=== PATIENT | female | born 1985 | race Caucasian/White ===

== ENCOUNTER 2016-08-14 07:16 | Emergency (ER) | payer OTHER ==
[~2016-08-14] VITALS: Ht 167.6 cm; Wt 70.2 kg
[2016-08-14 07:19] VITALS: Ht 167.6 cm; Wt 70.2 kg
[2016-08-14] MEDS ORDERED: KETOROLAC 30 MG INJ IV STA (08:16)
[2016-08-14] MEDS ORDERED: DIPHENHYDRAMINE 50 MG INJ IV ONE (08:30)
[2016-08-14] MEDS ORDERED: METOCLOPRAMIDE 10 MG INJ IV ONE (08:30)
[2016-08-14] MEDS ORDERED: SOD CHLORIDE 0.9% 1,000 ML IV ONE (08:30)
[2016-08-14 08:58] LABS: ADD SCAN DIFF NO
[2016-08-14 09:05] LABS: ADD UMIC YES; URINE BILIRUBIN (Dip) NEGATIVE (NEGATIVE); URINE BLOOD (Dip) 3+ (NEGATIVE); URINE COLOR LT. YELLOW (YELLOW); URINE GLUCOSE (Dip) NEGATIVE (NEGATIVE); URINE KETONES (Dip) NEGATIVE (NEGATIVE); URINE LEUKOCYTE ESTERASE (Dip) NEGATIVE (NEGATIVE); URINE NITRITE (Dip) NEGATIVE (NEGATIVE); URINE TOTAL PROTEIN (Dip) NEGATIVE (NEGATIVE); URINE UROBILINOGEN (Dip) 0.2 E.U./dL (0.1-1.0)
[2016-08-14 09:05] LABS: BASOPHILS % 0.3 % (0.0-2.0); EOSINOPHILS # 0.4 10^3/ul (0.0-0.5); EOSINOPHILS % 6.1 % (0.0-7.0); HEMATOCRIT 38.4 % (37.0-47.0); HEMOGLOBIN 12.6 g/dl (12.0-16.0); LYMPHOCYTES # 1.3 10^3/ul (0.8-2.9); LYMPHOCYTES % 20.9 % (15.0-51.0); MEAN CORPUSCULAR HEMOGLOBIN 29.2 pg (29.0-33.0); MEAN CORPUSCULAR HGB CONC 32.8 g/dl (32.0-37.0); MEAN CORPUSCULAR VOLUME 89.1 fl (82.0-101.0); MEAN PLATELET VOLUME 9.7 fl (7.4-10.4); MONOCYTE # 0.7 10^3/ul (0.3-0.9); MONOCYTES % 11.2 % (0.0-11.0); NEUTROPHIL # 3.9 10^3/ul (1.6-7.5); NEUTROPHILS % 61.2 % (39.0-77.0); PLATELET COUNT 329 10^3/UL (140-415); RED BLOOD COUNT 4.31 10^6/ul (4.20-5.40); RED CELL DISTRIBUTION WIDTH 12.8 % (11.5-14.5); WHITE BLOOD COUNT 6.4 10^3/ul (4.8-10.8)
[2016-08-14 09:14] LABS: ALBUMIN 4.1 g/dl (3.3-4.9)
[2016-08-14 09:15] LABS: POTASSIUM 4.1 mmol/L (3.5-5.1)
[2016-08-14 09:17] LABS: ALBUMIN/GLOBULIN RATIO 1.2; BILIRUBIN,INDIRECT 0.1 mg/dl (0-1.1); BILIRUBIN,TOTAL 0.1 mg/dl (0.2-1.3); CREATININE 0.95 mg/dl (0.44-1.00); TOTAL PROTEIN 7.5 g/dl (6.1-8.1)
[2016-08-14 09:18] LABS: CALCIUM 9.2 mg/dl (8.4-10.2)
[2016-08-14 09:37] LABS: SQUAMOUS EPITHELIAL CELL,UR FEW; URINE RBCS 0-2 /HPF (0)
[2016-08-14] MEDS ORDERED: NAPR-683 PO (10:00)
[2016-08-14] MEDS ORDERED: HYDR-906 PO (10:00)
[2016-08-14 10:07] VITALS: BP 117/80; PULSE 65; RESP 18; TEMP 98
--- NOTE | 2016-08-14 10:08 | ERD ---
ER Documentation Chief Complaint Date/Time DATE: 08/14/16 TIME: 10:08 Chief Complaint r side neck pain non traumatic since 0400. no neuromotor deficit HPI This is a 30-year-old female presents to the ER with right-sided neck pain that radiates into the right side of her head since 4 this morning. Patient has had these kind of headaches in the past however states this headache is worse. She has not had any head trauma. Pain is rated as 10 out of 10 and it is constant and stabbing in nature. Patient took ibuprofen and it did not help. She does admit to light sensitivity. She denies any vision changes. She denies any eye pain. Denies any fevers or chills. She denies any recent cough or cold symptoms. Denies neck stiffness. ROS 12 point review of systems was done, all negative except per HPI. Medications Home Meds Active Scripts Hydrocodone/Acetaminophen (Lincoln 5-325 Tablet) 1 Each Tablet, 1 TAB PO Q6H Y for PAIN, #7 TAB Prov:KAREN FELIX 08/14/16 Naproxen* (Naproxen*) 250 Mg Tablet, 250 MG PO BID Y for PAIN for 7 Days, TAB Prov:KAREN FELIX C 08/14/16 PMhx/Soc Hx Psychiatric Problems: Yes (depression) Hx Alcohol Use: Yes (socially) Hx Substance Use: No Hx Tobacco Use: Yes Smoking Status: Former smoker Physical Exam Vitals Vital Signs Date Time Temp Pulse Resp B/P Pulse Ox O2 Delivery O2 Flow Rate FiO2 08/14/16 10:07 98.0 65 18 117/80 99 08/14/16 07:19 98.4 77 21 139/84 100 Physical Exam GENERAL: The patient is well developed and appropriate for usual state of health , in no apparent distress. HEENT: Atraumatic. Conjunctivae are pink. Pupils equal, round, and reactive to light. Extraocular muscles are grossly intact. Bilateral tympanic membranes are clear with no evidence of erythema, bulging or perforation. No sinus tenderness. NECK: C-spine is soft and supple. There is no cervical lymphadenopathy. CHEST: Clear to auscultation bilaterally. There are no rales, wheezes or rhonchi. HEART: Regular rate and rhythm. No murmurs, clicks, rubs or gallops. EXTREMITIES: Equal pulses bilaterally. There is no peripheral clubbing, cyanosis or edema. No focal swelling or erythema. Full range of motion. Grossly neurovascularly intact. NEURO: Alert and oriented. Cranial nerves II through XII are intact. Motor strength in all 4 extremities with 5/5 strength. Sensation grossly intact. Normal speech and gait. Negative Rhomberg. +2 DTRs. SKIN: There is no apparent rash or petechia. The skin is warm and dry. Result Diagram: 08/14/16 0830 08/14/16 0830 Results 24 hrs Laboratory Tests Test 08/14/16 08:25 08/14/16 08:30 Urine Bilirubin NEGATIVE Urine Clarity CLEAR Urine Color LT. YELLOW Urine Glucose NEGATIVE% Urine Hemoglobin 3+ Urine Ketones NEGATIVE Urine Leukocyte Esterase NEGATIVE Urine Microscopic RBC 0-2/HPF Urine Microscopic WBC NONE SEEN/HPF Urine Nitrite NEGATIVE Urine Specific Webster 1.020 Urine Squamous Epithelial Cells FEW Urine Total Protein NEGATIVE Urine Urobilinogen 0.2 E.U./dL Urine pH 7.0 Alanine Aminotransferase (ALT/SGPT) 27IU/L Albumin 4.1g/dl Albumin/Globulin Ratio 1.20 Alkaline Phosphatase 67IU/L Anion Gap 13 Aspartate Amino Transf (AST/SGOT) 24IU/L Basophils # 0.010^3/ul Basophils % 0.3% Blood Urea Nitrogen 18mg/dl Calcium Level 9.2mg/dl Carbon Dioxide Level 32mmol/L Chloride Level 102mmol/L Creatinine 0.95mg/dl Direct Bilirubin 0.00mg/dl Eosinophils # 0.410^3/ul Eosinophils % 6.1% Globulin 3.40g/dl Glucose Level 102mg/dl Hematocrit 38.4% Hemoglobin 12.6g/dl Indirect Bilirubin 0.1mg/dl Lymphocytes # 1.310^3/ul Lymphocytes % 20.9% Mean Corpuscular Hemoglobin 29.2pg Mean Corpuscular Hemoglobin Concent 32.8g/dl Mean Corpuscular Volume 89.1fl Mean Platelet Volume 9.7fl Monocytes # 0.710^3/ul Monocytes % 11.2% Neutrophils # 3.910^3/ul Neutrophils % 61.2% Nucleated Red Blood Cells # 0.010^3/ul Nucleated Red Blood Cells % 0.0/100WBC Platelet Count 96424^3/UL Potassium Level 4.1mmol/L Red Blood Count 4.3110^6/ul Red Cell Distribution Width 12.8% Sodium Level 143mmol/L Total Bilirubin 0.1mg/dl Total Protein 7.5g/dl White Blood Count 6.410^3/ul Current Medications Medications (Trade) Dose Ordered Sig/Rory Route PRN Reason Start Time Stop Time Status Last Admin Dose Admin Ketorolac Tromethamine 30 mg 30 mg ONCE STAT IV 08/14/16 08:16 08/14/16 08:19 DC 08/14/16 08:43 Sodium Chloride (NS) 1,000 ml @ 1,000 mls/hr Q1H ONCE IV 08/14/16 08:30 08/14/16 09:29 DC 08/14/16 08:43 Metoclopramide HCl (Reglan) 10 mg ONCE ONCE IV 08/14/16 08:30 08/14/16 08:31 DC 08/14/16 08:43 Diphenhydramine HCl (Benadryl) 25 mg ONCE ONCE IV 08/14/16 08:30 08/14/16 08:31 DC 08/14/16 08:44 Procedures/MDM Differential Diagnosis includes but is not limited to; tension headache, migraine headache, cluster headache, sinus headache, nonspecific febrile headache, trigeminal neurologia, subdural hematoma, subarachnoid bleeding, meningitis, encephalitis. Patient is neurologically intact with no focal neurological deficits. This is likely a migraine headache, patient was given Toradol, Reglan, diphenhydramine here in the ER and upon reexamination stated she felt better. Patient's headache has completely resolved here in the ER. She is afebrile and well-appearing. Leukocytosis or urinary tract infection. Patient will be sent home with naproxen with Lincoln. She needs to follow-up with her PCP within 1-2 days or return to ER sooner if symptoms worsen. Medical decision making patient with the patient she understands and agrees with plan. Departure Diagnosis: Primary Impression: Headache Condition: Stable Patient Instructions: Self-Care for Headaches Additional Instructions: Call your primary care doctor TOMORROW for an appointment during the next 1-2 days.See the doctor sooner or return here if your condition worsens before your appointment time. KAREN FELIX Aug 14, 2016 10:08
== END 2016-08-14 10:10 | disposition home or self-care (01) ==
LOC: FTE 07:16
DX: R51 Headache (principal); Z87.891 Personal history of nicotine dependence
CPT/HCPCS: 80053; 81001; 85025; 96361; 96374; 96375; J1200; J1885; J2765; J7030; Z7502; 81003